=== PATIENT | male | born 1945 | race Caucasian/White ===

== ENCOUNTER 2023-06-21 01:30 | Emergency (ER) | payer OTHER ==
[~2023-06-21] VITALS: Ht 180.3 cm; Wt 66.3 kg
[2023-06-21 01:58] VITALS: BP 137/84; PULSE 109; RESP 20; TEMP 97.9
[2023-06-21 03:17] VITALS: O2SAT 96
== END 2023-06-21 06:25 | disposition home or self-care (01) ==
LOC: ER 01:30
DX: R33.9 Retention of urine, unspecified (principal); N39.0 Urinary tract infection, site not specified; Z88.1 Allergy status to other antibiotic agents
CPT/HCPCS: 51702